=== PATIENT | female | born 2005 | race Two or more races ===

== ENCOUNTER 2024-03-18 10:40 | Emergency (ER) | payer MEDICAID ==
[~2024-03-18] VITALS: Ht 152.4 cm; Wt 50.0 kg
[2024-03-18 10:43] VITALS: TEMP 98.3
[2024-03-18] MEDS: IBUPROFEN 600 MG TABLET PO ONE (12:47)
[2024-03-18] MEDS: ACETAMINOPHEN 500 MG TABLET PO ONE (12:47)
[2024-03-18] MEDS ORDERED: ACET-3385 PO (14:36)
[2024-03-18] MEDS ORDERED: ONDA-104 PO (14:36)
[2024-03-18 14:57] VITALS: BP 118/72; PULSE 90; RESP 16
== END 2024-03-18 14:58 | disposition home or self-care (01) ==
LOC: EMS 10:40
DX: S09.90XA Unspecified injury of head, initial encounter (principal); W22.8XXA Striking against or struck by other objects, initial encounter; Y93.89 Activity, other specified; Y92.89 Other specified places as the place of occurrence of the external cause; Y99.8 Other external cause status
CPT/HCPCS: 70450; 72125; 99284